=== PATIENT | male | born 1990 | race Caucasian/White ===

== ENCOUNTER 2024-04-26 12:21 | Emergency (ER) | payer OTHER ==
[~2024-04-26] VITALS: Ht 175.3 cm; Wt 80.1 kg
[2024-04-26 12:41] VITALS: BP 136/101; PULSE 108; RESP 16; O2SAT 97
[2024-04-26] MEDS: TETanus/Pertussis (Acell)/Diphther VAC/PF (Tdap-Adult) 0.5ml syringe IMVAC ONE (14:23)
[2024-04-26] MEDS: LIDOcaine 1% 30ml preserv. free vial IJ ONE (14:26)
[2024-04-26 15:37] VITALS: TEMP 99.5
== END 2024-04-26 15:39 | disposition home or self-care (01) ==
LOC: ER 12:21
DX: S51.812A Laceration without foreign body of left forearm, initial encounter (principal); W26.0XXA Contact with knife, initial encounter; Y93.89 Activity, other specified; Y92.89 Other specified places as the place of occurrence of the external cause; Y99.8 Other external cause status
CPT/HCPCS: 12001; 90471; 90715; 99283; J2003; J7030; A6258; A6449